=== PATIENT | male | born 1960 | race Caucasian/White ===

== ENCOUNTER 2019-07-07 05:28 | Day surgery (SDC) | payer BC ==
[2019-07-07] MEDS ORDERED: Dextrose 5%-Lactated Ringers 1,000 ML IV SCH (06:00)
[2019-07-07] MEDS ORDERED: ceFAZolin 2 GM in Sodium Chloride 0.9% 50 ML IV ONE (06:00)
[2019-07-07] MEDS ORDERED: Bupivacaine 0.5% 50 ML MDV ONE (06:41)
[2019-07-07] MEDS ORDERED: Lidocaine 1% with EPINEPHrine 1:100,000 50 ML MDV ONE (06:41)
[2019-07-07] MEDS ORDERED: fentaNYL 100 MCG/2 ML SDV ONE (07:08)
[2019-07-07] MEDS ORDERED: Propofol 200 MG/20 ML SDV ONE ×2 (07:09→07:33)
[2019-07-07] MEDS ORDERED: Midazolam 1 MG/ML 2 ML SDV ONE (07:09)
[2019-07-07 09:44] VITALS: BP 112/74; PULSE 77
--- NOTE | 2019-07-15 12:18 | OR ---
DATE OF PROCEDURE: 07/07/2019 SURGEON: Armando Fernando MD PREOPERATIVE DIAGNOSIS: Atypical skin lesions of the upper mid back. POSTOPERATIVE DIAGNOSIS: Atypical skin lesions of the upper mid back. OPERATIVE PROCEDURES: 1. Excision of atypical skin lesion of the upper mid back with layered closure ([id number]). 2. 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 ANESTHESIA: Local plus IV sedation. INDICATION FOR PROCEDURE: This 59-year-old presenting with 2 atypical lesions, one is in the upper mid back, this is a flat lesion with some variation in color and edges, maybe somewhat suspicious for pre-melanotic or early melanoma. The patient in the mid back has a raised lesion over a warty-type protrusion with a surface containing an ulcerated area that would appear to be most likely squamous cell carcinoma. Finally, we proceeded with excision of both of these with a margin of normal-appearing skin around them. Potential risks of the procedure including bleeding, infection, possible need for re-excision depending on pathology findings were all reviewed, and the patient wishes to proceed. DETAILS OF PROCEDURE: The patient was taken to the operating room and placed in a right lateral decubitus position. IV sedation was administered after which the back areas were prepped and draped. Both the areas were then anesthetized with 1% lidocaine mixed with Marcaine. Initially, a transverse elliptical incision around the upper back lesion was made. This included the lesion plus margin length of 2.3 cm and potentially an incision length of 4.0 cm. The incision was carried down through the skin and subcutaneous tissue and the lesion then removed with a rim of underlying subcutaneous tissue and could provide a satisfactory deep margin. This incision was then closed with some 4-0 Vicryl stitch deep and then a 5-0 Prolene skin stitch. The second lesion was then marked out in the mid back. This one had a lesion with a plus margin length of 2.1 cm and incision length of 3.2 cm. This was similarly excised with elliptical orientation and a closed similarly to the upper lesion in layers. Dressings were applied. The patient was taken to the recovery room in satisfactory condition. There were no evident complications. Armando Fernadno MD /[id number]
== END 2019-07-07 09:00 | disposition home or self-care (01) ==
LOC: JP.SDS 05:28
PROVIDERS: ATTEND Surgery
DX: L83 Acanthosis nigricans (principal); D22.5 Melanocytic nevi of trunk; C44.529 Squamous cell carcinoma of skin of other part of trunk; I10 Essential (primary) hypertension; E78.5 Hyperlipidemia, unspecified; E66.9 Obesity, unspecified; Z68.35 Body mass index [BMI] 35.0-35.9, adult
CPT/HCPCS: 11403; 11603; 12032; 88305; J0690; J2250; J2704; J3010; J3490; J7050; J7121

== ENCOUNTER 2020-01-01 10:35 | Emergency (ER) | payer BC ==
[2020-01-01 10:45] VITALS: BP 147/92; PULSE 92
--- NOTE | 2020-01-01 10:56 | EDM.PDOC ---
ED HPI GENERAL MEDICAL PROBLEM - General Chief Complaint: Laceration Stated Complaint: LACERATION TOP OF THE HEAD Time Seen by Provider: 01/01/20 10:40 Source of Information: Reports: Patient, RN History Limitations: Reports: No Limitations - History of Present Illness INITIAL COMMENTS - FREE TEXT/NARRATIVE: Brady presents to the ED after hitting the top of his head on a piece of tin just prior to coming in. He has a laceration located on the top of his head off to the left side. Bleeding is minimal at this time. Last tetanus was 2013. Onset: Sudden Onset Date: 01/01/20 Location: Reports: Head Treatments [employer]: Reports: Dressing(s) - Related Data Allergies Allergy/AdvReac Type Severity Reaction Status Date / Time No Known Allergies Allergy Verified 01/01/20 10:42 Home Meds: Home Meds Aspirin [Adult Low Dose Aspirin EC] 81 mg PO DAILY 07/03/19 [History] Chlorthalidone 25 mg PO DAILY 07/03/19 [History] Losartan [Cozaar] 25 mg PO DAILY 07/03/19 [History] atorvaSTATin Calcium [Lipitor] 40 mg PO BEDTIME 07/03/19 [History] Past Medical History HEENT History: Reports: Impaired Vision Cardiovascular History: Reports: High Cholesterol, Hypertension Musculoskeletal History: Reports: Arthritis Endocrine/Metabolic History: Reports: None, Obesity/BMI 30+ Dermatologic History: Reports: Other (See Below) Other Dermatologic History: skin lesion on back - Infectious Disease History Infectious Disease History: Reports: Chicken Pox - Past Surgical History Head Surgeries/Procedures: Reports: None HEENT Surgical History: Reports: None Cardiovascular Surgical History: Reports: None Endocrine Surgical History: Reports: None Musculoskeletal Surgical History: Reports: Other (See Below) Other Musculoskeletal Surgeries/Procedures:: back Dermatological Surgical History: Reports: None Social & Family History - Tobacco Use Smoking Status *Q: Never Smoker Second Hand Smoke Exposure: No - Caffeine Use Caffeine Use: Reports: Coffee - Alcohol Use Days Per Week of Alcohol Use: 7 Number of Drinks Per Day: 2 Total Drinks Per Week: 14 - Recreational Drug Use Recreational Drug Use: No ED ROS GENERAL - Review of Systems Review Of Systems: See Below Constitutional: Reports: No Symptoms HEENT: Reports: No Symptoms Respiratory: Reports: No Symptoms Cardiovascular: Reports: No Symptoms Endocrine: Reports: No Symptoms GI/Abdominal: Reports: No Symptoms : Reports: No Symptoms Musculoskeletal: Reports: No Symptoms Skin: Reports: Other (laceration to top of head) Neurological: Reports: No Symptoms Psychiatric: Reports: No Symptoms Hematologic/Lymphatic: Reports: No Symptoms Immunologic: Reports: No Symptoms ED EXAM, SKIN/RASH Exam: See Below Exam Limited By: No Limitations General Appearance: Alert, No Apparent Distress Head: Normocephalic Skin: Warm, Dry, Other (6 cm linear laceration to top of head, depth of 1 to 1.5 mm. ) Location, Skin: Head Associated features: No: Warmth, Swelling Lymphatic: No Adenopathy ED SKIN PROCEDURES - Laceration/Wound Repair [place] Head Appearance: Superficial Skin Prep: Chlorhexidine (Hibiciens) Exploration/Debridement/Repair: No Foreign Material Found Closed with: Wound Adhesive Lac/Wound length In cm: 6 (superficial- 1-1.5mm in depth) Sterile Dressing Applied: None Tetanus Status Addressed: Yes Progress/Comments: laceration closed with skin glue. no complications or issues. education on skin adhesive given to pt Course - Vital Signs Last Recorded V/S: Last Vital Signs Temp 96.4 F L 01/01/20 10:47 Pulse 92 01/01/20 10:47 Resp 17 01/01/20 10:47 BP 147/92 H 01/01/20 10:47 Pulse Ox 96 01/01/20 10:47 Departure - Departure Time of Disposition: 11:13 Disposition: Home, Self-Care 01 Clinical Impression: Laceration Clinical Impression: (Ruled Out): Laceration and contusion of left cerebral hemisphere with moderate (1-24 hours) loss of consciousness - Discharge Information *PRESCRIPTION DRUG MONITORING PROGRAM REVIEWED*: Not Applicable *COPY OF PRESCRIPTION DRUG MONITORING REPORT IN PATIENT VARSHA: Not Applicable Instructions: Sutures, [place], or Adhesive Wound Closure, [id number] Referrals: PCP,None [Primary Care Provider] - Forms: ED Department Discharge Care Plan Goals: Keep the laceration clean. You may shower, but do not rub or use soap on the skin adhesive. Do not put any ointments on the laceration either. Watch for signs of infection. Your tetanus is up to date. follow up with your PCP with any concerns or return to the ED Sepsis Event Note (ED) - Evaluation Sepsis Screening Result: No Definite Risk - Focused Exam Vital Signs: Vital Signs Temp Pulse Resp BP Pulse Ox 01/01/20 10:47 96.4 F L 92 17 147/92 H 96 01/01/20 10:44 96.4 F L 92 17 147/92 H 96 - Assessment/Plan Plan: discharge home. skin adhesive instructions given to pt
== END 2020-01-01 11:24 | disposition home or self-care (01) ==
LOC: JP.ED 10:35
DX: S01.01XA Laceration without foreign body of scalp, initial encounter (principal); E78.00 Pure hypercholesterolemia, unspecified; I10 Essential (primary) hypertension; M19.90 Unspecified osteoarthritis, unspecified site; E66.9 Obesity, unspecified; Z68.37 Body mass index [BMI] 37.0-37.9, adult; Z79.82 Long term (current) use of aspirin; Z79.899 Other long term (current) drug therapy; W22.8XXA Striking against or struck by other objects, initial encounter
CPT/HCPCS: 12002; 99282-25